=== PATIENT | male | born 1985 | race Caucasian/White ===

== ENCOUNTER 2017-11-05 10:10 | Inpatient (IN) | payer OTHER ==
[~2017-11-05] VITALS: Ht 180.3 cm; Wt 87.3 kg
[2017-11-05 10:28] VITALS: Ht 180.3 cm; Wt 87.3 kg
[2017-11-05 12:25] LABS: BASOPHIL % 0.6 % (0-2); PLATELET COUNT 270 x10^3mcL (130-400); RED CELL DISTRIBUTION WIDTH 13.3 % (11.5-14.5)
[2017-11-05 12:48] LABS: CALCIUM 9.2 mg/dL (8.5-10.1); CARBON DIOXIDE 29.5 mmol/L (21-32); CHLORIDE SERUM 101 mmol/L (98-107); GFR1 > 60 mL/min; GLUCOSE SERUM 96 mg/dL (74-106); POTASSIUM SERUM 4.1 mmol/L (3.5-5.1); SODIUM SERUM 141 mmol/L (136-145)
[2017-11-05 13:01] LABS: ALBUMIN 4.2 g/dL (3.4-5.0); ALKALINE PHOSPHATASE 58 U/L (46-116); ALT/SGPT 49 U/L (16-63); AST/SGOT 22 U/L (15-37); BILIRUBIN TOTAL 0.6 mg/dL (0.20-1.00)
[2017-11-05 13:35] LABS: AMPHETAMINE QUAL UR NONE DETECTED (NEG <=1000)
[2017-11-05 17:42] LABS: MAGNESIUM 2.1 mg/dL (1.8-2.4)
[2017-11-05 17:46] VITALS: BP 155/101
[2017-11-05 17:47] LABS: CHOLESTEROL/HDL RATIO 5.5; T3 TOTAL 1.09 ng/mL
[2017-11-05 18:06] LABS: FREE T4 0.95 ng/dL (0.76-1.46); FREE THYROXINE INDEX 2.7 ug/dL (1.4-4.5); T4(THYROXINE) 7.6 ug/dL (4.7-13.3)
[2017-11-05 19:15] VITALS: BP 111/84
[2017-11-06 04:37] LABS: BASOPHIL % 0.5 % (0-2); PLATELET COUNT 262 x10^3mcL (130-400); RED CELL DISTRIBUTION WIDTH 13.3 % (11.5-14.5)
[2017-11-06 04:45] LABS: CALCIUM 9.2 mg/dL (8.5-10.1); CHLORIDE SERUM 104 mmol/L (98-107); GFR1 > 60 mL/min; GLUCOSE SERUM 108 mg/dL (74-106); MAGNESIUM 1.9 mg/dL (1.8-2.4); PHOSPHOROUS 4.3 mg/dL (2.5-4.9); POTASSIUM SERUM 4.1 mmol/L (3.5-5.1); SODIUM SERUM 141 mmol/L (136-145)
[2017-11-06 05:32] VITALS: BP 117/70
[2017-11-06 07:48] LABS: microscopic required? NO
[2017-11-06 08:20] LABS: UA SPECIFIC GRAVITY <=1.005 (1.005-1.035); urine erythrocyte NEGATIVE (NEGATIVE)
[2017-11-06 09:06] VITALS: BP 117/70
[2017-11-06 09:25] VITALS: BP 108/86
== END 2017-11-06 10:47 | disposition home or self-care (01) | DRG 206 ==
LOC: ED 10:10 → DU 16:14 → MU 11-06 09:42
PROVIDERS: Emergency Medicine; Family Medicine
DX: M94.0 Chondrocostal junction syndrome [Tietze] (principal); F17.210 Nicotine dependence, cigarettes, uncomplicated; E78.5 Hyperlipidemia, unspecified; D72.829 Elevated white blood cell count, unspecified; R00.0 Tachycardia, unspecified; Z72.89 Other problems related to lifestyle
CPT/HCPCS: 83880; 84439; 90658; J1885; J7030; Q9967